=== PATIENT | male | born 1995 | race Caucasian/White ===

== ENCOUNTER 2018-03-07 19:33 | Emergency (ER) | payer SELFPAY ==
[~2018-03-07] VITALS: Ht 180.3 cm; Wt 105.0 kg
[~2018-03-07 19:33] MED LIST: OFLO.3%A AS; Z.0.NO CURRENT MEDS
[2018-03-07 19:42] VITALS: BP 163/84; PULSE 65; RESP 16; TEMP 98.5; O2SAT 98
--- NOTE | 2018-03-07 20:04 | PD ---
HPI Chief Complaint: Medical Clearance Time Seen by Provider: 19:56 Travel History International Travel<30 days: No Contact w/Intl Traveler<30days: No Traveled to known affect area: No History of Present Illness HPI 22-year-old white male presents emergency department requesting a work note. He states that he had called off work today because he was coughing and sneezing this morning. 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 Patient states that when he had notified his supervisor [employer] was told that he needed a note to return to work. Patient presents requesting work note patient's symptoms have resolved. He denies any fever chills. No chest pain, cough, shortness of breath, nausea, vomiting, diarrhea. Symptoms are resolved. Alleviated by time. No exacerbating symptoms. History Past Medical Histgory Medical History: Denies Significant Hx Tetanus Vaccination: < 5 Years Social History Alcohol Use: No Tobacco Use: No Allergies-Medications (Allergen,Severity, Reaction): Coded Allergies: No Known Allergies (Verified Adverse Reaction, Unknown, 03/07/18) Reported Meds & Prescriptions Reported Meds & Active Scripts Active Floxin (Ofloxacin) 0.3 % Soln 5 Drop BID 10 Days Reported No Current Meds (Miscellaneous Medication) [facility] General / Constitutional: No: Fever Eyes: No: Visual changes HENT: No: Headaches Cardiovascular: No: Chest Pain or Discomfort Respiratory: No: Shortness of Breath Gastrointestinal: No: Abdominal Pain Genitourinary: No: Dysuria Musculoskeletal: No: Pain Skin: No Rash Neurologic: No: Weakness Psychiatric: No: Depression Endocrine: No: Polydipsia Hematologic/Lymphatic: No: Easy Bruising Physical Exam Narrative GENERAL: Well-developed, well-nourished in no acute distress. Nontoxic appearing. HEAD: Normocephalic, atraumatic. EYES: Pupils equal round and reactive. Extraocular motions intact. No scleral icterus. No injection or drainage. ENT: TMs clear without erythema. The external auditory canals clear. Nose: clear . Posterior pharynx is pink and moist. No tonsillar edema or exudate. Uvula midline. Airway patent. NECK: Trachea midline.Supple, nontender, moves head freely. No central bony tenderness or spasm. CARDIOVASCULAR: Regular rate and rhythm without murmurs, gallops, or rubs. RESPIRATORY: Clear to auscultation. Breath sounds equal bilaterally. No wheezes , rales, or rhonchi. GASTROINTESTINAL: Abdomen soft, non-tender, nondistended. No hepato-splenomegaly , or palpable masses. No guarding. EXTREMITIES: No clubbing, cyanosis, or edema. No joint tenderness, effusion, or edema noted. BACK: Nontender without deformity or crepitance. No flank tenderness. Data Data Last Documented VS Vital Signs Date Time Temp Pulse Resp B/P (MAP) Pulse Ox O2 Delivery O2 Flow Rate FiO2 03/07/18 19:42 98.5 65 16 163/84 (110) 98 MDM Medical Screen Exam Complete: Yes Emergency Medical Condition: No Differential Diagnosis MDM: High Differential diagnoses: Pneumonia, bronchitis, URI, seasonal allergy Narrative Course A medical screening exam was performed: At the time of evaluation the presenting medical condition was determined not to be of an emergent nature. The patient was given the option of receiving additional care, but declined. Patient was given options for additional community resources from which to obtain care. The Patient Has Been advised to seek medical attention for their presenting complaint. The patient has been advised to return to the ER at any time if an emergent condition develops. Primary Impression: Encounter for medical screening examination Condition: João Chaudhari Mar 07, 2018 20:04
== END 2018-03-07 20:16 | disposition left against medical advice (07) ==
LOC: NEPD 19:33
DX: R05 Cough (principal)
CPT/HCPCS: 99281